=== PATIENT | female | born 1980 | race American Indian/Alaskan Native ===

== ENCOUNTER 2017-06-10 12:43 | Emergency (ER) | payer MEDICAID ==
[2017-06-10] MEDS ORDERED: TYLENOL PO ONE (13:54)
[2017-06-10] MEDS ORDERED: TYLENOL ONE (13:58)
[2017-06-10 14:21] LABS: Bacteria,Urine 1+ /HPF (Negative); Bilirubin,Urine NEG (Negative); Blood,Urine SM (Negative); Ketones,Urine NEG (Negative); Leukocyte Esterase,Urine LG (Negative); Mucus,Urine FEW /HPF; Nitrite,Urine POS (Negative)
[2017-06-10 14:23] LABS: Basophils % (Auto) 0.6 % (0.0-1.8); Hematocrit 32.2 % (30.3-42.9); Hemoglobin 10.2 gm/dl (10.1-14.3); Mean Corpuscular HGB Conc 32 % (30-34); Mean Corpuscular Volume 81 fl (79-97); Platelet Count 294 K/mm3 (140-440); Red Cell Distribution Width 16.7 % (13.2-15.2); White Blood Count 10.6 K/mm3 (4.5-11.0)
[2017-06-10 14:25] LABS: WBC,Urine > 182.0 /HPF (0.0-6.0)
[2017-06-10 14:25] LABS: Mean Corpuscular Hemoglobin 26 pg (28-32)
[2017-06-10 14:48] LABS: Alanine Aminotransferase 24 units/L (7-56); Albumin 3.8 g/dL (3.9-5); Alkaline Phosphatase 69 units/L (35-129); Anion Gap 19 mmol/L; BUN/Creatinine Ratio 7; Blood Urea Nitrogen 6 mg/dL (7-17); Calcium 8.8 mg/dL (8.4-10.2); Carbon Dioxide 26 mmol/L (22-30); Chloride 97.4 mmol/L (98-107); Glucose 104 mg/dL (65-100); Sodium 139 mmol/L (137-145); Total Protein 7.8 g/dL (6.3-8.2)
[2017-06-10 14:50] LABS: Potassium 2.9 mmol/L (3.6-5.0)
[2017-06-10 14:51] LABS: INR 1.13 (0.87-1.13)
--- NOTE | 2017-06-10 15:00 | Emergency Department Report ---
Chief Complaint: Fever Stated Complaint: FLU LIKE SYMPTOMS Time Seen by Provider: 06/10/17 14:56 - HPI History of Present Illness: Patient reports that she is having body aches, chills fever 7-10 days. She is reporting pain in her back. She is also complaining a strong smelling urine or urinary frequency denies any burning or urgency. She has a history of Graves' disease and she had her thyroid removed in 2010 and says she is on medication. Pain is 10 out of 10 generalized and achy. Last menstrual period was 06/07/2017 - ROS Review of Systems: All systems are negative unless stated in HPI above - Exam Vital Signs: Vital Signs 06/10/17 06/10/17 13:25 13:57 Temperature 102.1 F H Pulse Rate 124 H Respiratory 20 18 Rate Blood Pressure 119/74 O2 Sat by Pulse 100 Oximetry Physical Exam: Gen.: This is a 37-year-old female that looks sick. Abdomen: Soft, nontender to palpate. Positive CVA tenderness and normal bowel sounds in all quadrants MSE screening note: Focused history and physical exam performed. Due to findings the following was ordered: ED Medical Decision Making - Lab Data Result diagrams: 06/10/17 13:41 06/10/17 13:41 - Medical Decision Making MDM: Patient screened by provider in triage area. Appropriate protocol initiated and patient to be seen in main ED by ED Disposition for MSE Condition: Stable
[2017-06-10] MEDS ORDERED: MOTRIN PO ONE (16:11)
[2017-06-10] MEDS ORDERED: MACROBID PO ONE (16:11)
[2017-06-10] MEDS ORDERED: K-DUR PO ONE (16:11)
--- NOTE | 2017-06-10 16:25 | Emergency Department Report ---
HPI - General Chief Complaint: Fever Time Seen by Provider: 06/10/17 14:56 - HPI HPI: This is a 37-year-old -Citizen Of The [place] female presents to the emergency department with complaint of some fatigue, body aches, chills and fever. The generalized symptoms have been going on for the past 5-6 days but the chills and subjective fever having ongoing over the past 2-3 days. She has not taken anything for her symptoms prior to presentation. She denies any chest pain, cough, abdominal pain, nausea, vomiting, dysuria, vaginal bleeding or discharge but does say that her urine has had a very strong odor to it. She has a history of Graves' disease and hypothyroidism and is on levothyroxine 175 g per day but admits that she has just not been taking the medication for some reason. She does not currently have a primary care physician. Recent travel or sick contacts at home. ED Past Medical Hx - Past Medical History Additional medical history: Graves - Surgical History Additional Surgical History: 2010-thyroid - Social History Smoking Status: Never Smoker Substance Use Type: None - Medications Home Medications: Home Medications Medication Instructions Recorded Confirmed Last Taken Type Nitrofurantoin [place]/M-Cryst 100 mg PO Q12HR #14 capsule 06/10/17 Unknown Rx [Macrobid CAP] ED Review of Systems ROS: Stated complaint: FLU LIKE SYMPTOMS Other details as noted in HPI Comment: All other systems reviewed and negative Constitutional: chills, fever, weakness Eyes: denies: eye pain, eye discharge, vision change ENT: denies: ear pain, throat pain Respiratory: denies: cough, shortness of breath, wheezing Cardiovascular: denies: chest pain, palpitations Gastrointestinal: denies: abdominal pain, nausea, diarrhea Genitourinary: denies: hematuria, discharge Musculoskeletal: myalgia. denies: joint swelling Skin: denies: rash, lesions Neurological: denies: headache, numbness Physical Exam - Physical Exam Vital Signs: Vital Signs 06/10/17 06/10/17 06/10/17 13:25 13:57 15:23 Temperature 102.1 F H Pulse Rate 124 H Respiratory 20 18 12 Rate Blood Pressure 119/74 Blood Pressure [Right] O2 Sat by Pulse 100 Oximetry 06/10/17 15:35 Temperature 97.2 F L Pulse Rate 97 H Respiratory 12 Rate Blood Pressure Blood Pressure 118/71 [Right] O2 Sat by Pulse 100 Oximetry Physical Exam: GENERAL: The patient is well-developed well-nourished. HENT: Normocephalic. Atraumatic. Patient has moist mucous membranes. Oropharynx is clear. EYES: Extraocular motions are intact. Pupils equal reactive to light bilaterally. NECK: Supple. Trachea is midline. CHEST/LUNGS: Clear to auscultation. There is no respiratory distress noted. HEART/CARDIOVASCULAR: Regular. There is no tachycardia. There is no gallop rub or murmur. ABDOMEN: Abdomen is soft, nontender. Patient has normal bowel sounds. There is no abdominal distention. SKIN: Skin is warm and dry. NEURO: The patient is awake, alert, and oriented. The patient is cooperative. The patient has no focal neurologic deficits. The patient has normal speech. MUSCULOSKELETAL: There is no tenderness or deformity. There is no limitation range of motion. There is no evidence of acute injury. ED Course Vital Signs 06/10/17 06/10/17 06/10/17 13:25 13:57 15:23 Temperature 102.1 F H Pulse Rate 124 H Respiratory 20 18 12 Rate Blood Pressure 119/74 Blood Pressure [Right] O2 Sat by Pulse 100 Oximetry 06/10/17 15:35 Temperature 97.2 F L Pulse Rate 97 H Respiratory 12 Rate Blood Pressure Blood Pressure 118/71 [Right] O2 Sat by Pulse 100 Oximetry ED Medical Decision Making - Lab Data Result diagrams: 06/10/17 13:41 06/10/17 13:41 - Medical Decision Making 37-year-old female presents with some nonspecific fatigue, weakness, body aches and chills and a fever. She does have a fever Tmax 102 here. She was given Tylenol and eventually ibuprofen and her fever resolved. The patient presented with some tachycardia but that had resolved prior to me seeing the patient. The patient has a history of hypothyroidism and has been noncompliant with her levothyroxine and was found to have hypothyroid labs/levels here. She does not appear to be in any type of hypothyroid emergency or myxedema coma and will restart her levothyroxine. She has hypokalemia with potassium of 2.9 and was given potassium chloride as replacement. Her labs show a urinary tract infection. She was given a dose of Macrobid for this as well. She was reevaluated multiple times for multiple hours and says she is feeling much better. We discussed eating an extra banana and/or searching for potassium rich foods to eat and increase her potassium. She will go on a 1 week course of Macrobid for her urinary tract infection. We discussed using Tylenol and ibuprofen for fever and/or discomfort. She will follow-up with her primary care physician and return to the ER with any worsening of her symptoms or any acute distress. - Differential Diagnosis hypothyroidism, viral syndrome, UTI, sepsis, influenza Critical Care Time: No Critical care attestation.: If time is entered above; I have spent that time in minutes in the direct care of this critically ill patient, excluding procedure time. ED Disposition Clinical Impression: Viral syndrome, Hypokalemia Hypothyroidism Qualifiers: Hypothyroidism type: unspecified Qualified Code(s): E03.9 - Hypothyroidism, unspecified Fever Qualifiers: Fever type: unspecified Qualified Code(s): R50.9 - Fever, unspecified UTI (urinary tract infection) Qualifiers: Urinary tract infection type: acute cystitis Hematuria presence: without hematuria Qualified Code(s): N30.00 - Acute cystitis without hematuria Disposition: TO HOME OR SELFCARE Is pt being admited?: No Condition: Stable Instructions: Urinary Tract Infection in Women (ED), Fever in Adults (ED), Hypokalemia (ED), Hypothyroidism (ED), Viral Syndrome (ED) Additional Instructions: Please follow up with a primary care physician in the next few days. Eat an extra banana or look up potassium rich foods so you can supplement your potassium a little. Take the antibiotics as prescribed for your urinary tract infection. You can take Tylenol every 4 hours, and ibuprofen every 6 hours, using weight-based dosing as needed for fever or discomfort. Return to the emergency Department with any worsening of your symptoms or any acute distress. Make sure to restart your levothyroxine to treat your hypothyroidism. Prescriptions: Nitrofurantoin [place]/M-Cryst [Macrobid CAP] 100 mg PO Q12HR #14 capsule Referrals: MANDO RUIZ MD [Primary Care Provider] - 3-5 Days JERRY AHUMADA MD [Staff Physician] - 3-5 Days [facility] [Outside] - 3-5 Days [facility] [Outside] - 3-5 Days [facility] [Outside] - 3-5 Days Time of Disposition: 17:54
[2017-06-10 18:28] VITALS: BP 108/64
== END 2017-06-10 18:27 | disposition home or self-care (01) ==
LOC: ED 12:43
DX: B34.9 Viral infection, unspecified (principal); E87.6 Hypokalemia; E03.9 Hypothyroidism, unspecified; R50.9 Fever, unspecified; N30.00 Acute cystitis without hematuria
CPT/HCPCS: 36415; 80053; 81001; 81025; 82140; 83735; 84439; 84443; 85025; 85610; 87040; 87076; 87086; 87186; 99284